=== PATIENT | male | born 1975 | race Caucasian/White ===

== ENCOUNTER 2016-08-14 20:34 | Emergency (ER) | payer BC, OTHER ==
[~2016-08-14] VITALS: Ht 180.3 cm; Wt 113.4 kg
[2016-08-14] MEDS ORDERED: PRD20T PO (21:14)
[2016-08-14] MEDS ORDERED: PROM5SYR PO (21:14)
--- NOTE | 2016-08-14 21:14 | ED Cough/URI ---
General Chief Complaint: Cough/Cold/Flu Symptoms Stated Complaint: COUGH, BODY ACHES, CONGESTION Source: patient Exam Limitations: no limitations History of Present Illness Time seen by provider: 21:11 Initial Comments To ER with a persistent cough for one week. States that he has a cough that is so intense he can't catch his breath occasionally. states that she checked his oxygen saturation at home a few days ago and found to be 89 percent. He denies fevers. He is nonsmoker. He reports intermittent pain across his chest and in his back. States that his mother from pneumonia and is concerned he may have this. Timing/Duration: just prior to arrival Severity/Quality: dry cough Associated Symptoms: chest pain/soreness, cough Allergies and Home Medications Allergies Coded Allergies: Penicillins (Unverified Allergy, Unknown, 08/14/16) Home Medications Amoxicillin 500 Mg Capsule Unknown Dose PO (Reported) Prednisone 20 Mg Tab #6 40 MG PO DAILY Prescribed by: TARA JEFFERY on 08/14/162113 Promethazine HCl/Codeine 5 Ml Syrup #60 7.5 ML PO Q6H PRN PRN COUGH Prescribed by: TARA JEFFERY on 08/14/162113 Constitutional: see HPINo chills, No fever EENTM: see HPI Respiratory: see HPI coughNo short of breath Cardiovascular: no symptoms reported Genitourinary: no symptoms reported Musculoskeletal: no symptoms reported Skin: no symptoms reported Psychiatric/Neurological: No Symptoms Reported Hematologic/Lymphatic: No Symptoms Reported Past Giaqpka-Jvmrdw-Ccrubk Hx Patient Social History Recent Foreign Travel: No Contact w/Someone Who Travel: No Physical Exam Vital Signs Vital Sign - Last 12Hours 08/14/16 21:05 Temp 98.4 Pulse 98 Resp 20 B/P 166/102 Pulse Ox 96 O2 Delivery Room Air Capillary Refill : General Appearance: WD/WN no apparent distress Eyes: Bilateral Eye EOMI (6), Bilateral Eye Normal Inspection, Bilateral Eye PERRL HEENT: PERRL/EOMI normal ENT inspection TMs normal pharynx normal Neck: non-tender full range of motionNo lymphadenopathy (R), No lymphadenopathy (L) Respiratory: chest non-tender lungs clear normal breath sounds no respiratory distress no accessory muscle use Cardiovascular: regular rate, rhythm no murmur Gastrointestinal: normal bowel sounds non tender soft Extremities: normal range of motion non-tender Neurologic/Psychiatric: alert normal mood/affect oriented x 3 Skin: normal color warm/dry Progress/Results/Core Measures Results/Orders Lab Results Laboratory Tests Test 08/14/16 21:32 Range/Units Basophils # (Auto) 0.0 0.0-0.1 10^3/uL Basophils (%) (Auto) 0 0-10 % Eosinophils # (Auto) 0.2 0.0-0.3 10^3/uL Eosinophils (%) (Auto) 3 0-10 % Hematocrit 47 40-54 % Hemoglobin 16.5 13.3-17.7 G/DL Lymphocytes # (Auto) 2.2 1.0-4.0 X 10^3 Lymphocytes (%) (Auto) 32 12-44 % Mean Corpuscular Hemoglobin 30 25-34 PG Mean Corpuscular Hemoglobin Concent 35 32-36 G/DL Mean Corpuscular Volume 86 80-99 FL Mean Platelet Volume 10.4 7.4-10.4 FL Monocytes # (Auto) 0.7 0.0-1.0 X 10^3 Monocytes (%) (Auto) 10 0-12 % Neutrophils # (Auto) 3.9 1.8-7.8 X 10^3 Neutrophils (%) (Auto) 55 42-75 % Platelet Count 252 130-400 10^3/uL Red Blood Count 5.51 4.35-5.85 10^6/uL Red Cell Distribution Width 13.0 10.0-14.5 % Troponin I < 0.30 <0.30 NG/ML White Blood Count 7.0 4.3-11.0 10^3/uL My Orders Orders-TARA JEFFERY APRN Cbc With Automated Diff (08/14/16 21:10) Troponin I (08/14/16 21:10) Chest Pa/Lat (2 View) (08/14/16 21:10) Ekg Tracing (08/14/16 21:10) Promethazine/ Codeine Syrup (Phenergan W (08/14/16 22:30) Vital Signs/I&O Vital Sign - Last 12Hours 08/14/16 08/14/16 21:05 21:05 Temp 98.4 Pulse 98 Resp 20 B/P 166/102 Pulse Ox 96 O2 Delivery Room Air Room Air Diagnostic Imaging Diagonstic Imaging: Xray Plain Films/CT/US/NM/MRI: chest Comments NAME: XIANG MIRELES [facility] REC#: [id number] PT STATUS: REG ER : 1975 PHYSICIAN: TARA JEFFERY APRN ADMIT DATE: 08/14/16/ER Draft Date of Exam:08/14/16 CHEST PA/LAT (2 VIEW) INDICATION: Cough and congestion COMPARISON: None FINDINGS: Frontal and lateral views of the chest demonstrate clear lungs bilaterally. The heart size is normal. There is no pneumothorax. Osseous structures normal. IMPRESSION: Negative chest. Dictated on workstation # [id number] Dict: 08/14/162127 Trans: 08/14/162129 [id number] Interpreted by: DANETTE OBRIEN Electronically signed by: Esperanza Impression Impression: Primary Impression: Bronchitis Disposition: 01 HOME, SELF-CARE Condition: Stable Departure-Patient Inst. Decision time for Depature: 21:13 Referrals: NO,LOCAL PHYSICIAN (PCP) Primary Care Physician Patient Instructions: Acute Bronchitis, Adult (DC) Add. Discharge Instructions: 1. Return to ER for any concerns 2. Follow-up with your doctor next week 3. All discharge instructions reviewed with patient and/or family. Voiced understanding. Scripts Promethazine HCl/Codeine (Prometh-Codein 6.25-10 mg/5 ml)5 Ml Syrup7.5 Ml PO Q6H PRN COUGH #60 ML Prov:TARA JEFFERY APRN 08/14/16 Prednisone 20 Mg Tab40 Mg PO DAILY #6 TAB Prov:TARA JEFFERY APRN 08/14/16 TARA JEFFERY APRN Aug 14, 2016 21:14
[2016-08-14] MEDS ORDERED: AMOX500C2 PO (21:18)
--- NOTE | 2016-08-14 21:30 | Diagnostic Imaging Report ---
INDICATION: Cough and congestion COMPARISON: None FINDINGS: Frontal and lateral views of the chest demonstrate clear lungs bilaterally. The heart size is normal. There is no pneumothorax. Osseous structures normal. IMPRESSION: Negative chest. Dictated by: Dictated on workstation # [id number]
[2016-08-14 21:42] LABS: BASOPHILS % (AUTO) 0 % (0-10); EOSINOPHILS # (AUTO) 0.2 10^3/uL (0.0-0.3); EOSINOPHILS % (AUTO) 3 % (0-10); LYMPHOCYTES # (AUTO) 2.2 X 10^3 (1.0-4.0); LYMPHOCYTES % (AUTO) 32 % (12-44); MEAN CORPUSCULAR HEMOGLOBIN 30 PG (25-34); MEAN CORPUSCULAR HGB CONC 35 G/DL (32-36); MEAN CORPUSCULAR VOLUME 86 FL (80-99); MEAN PLATELET VOLUME 10.4 FL (7.4-10.4); MONOCYTES # (AUTO) 0.7 X 10^3 (0.0-1.0); MONOCYTES % (AUTO) 10 % (0-12); NEUTROPHILS # (AUTO) 3.9 X 10^3 (1.8-7.8); NEUTROPHILS % (AUTO) 55 % (42-75); PLATELET COUNT 252 10^3/uL (130-400); RED BLOOD COUNT 5.51 10^6/uL (4.35-5.85)
[2016-08-14 22:24] VITALS: BP 148/92
[2016-08-14] MEDS ORDERED: PROMETHAZINE/ CODEINE SYRUP 5 ML UDC PO ONE ×2 (22:30)
== END 2016-08-14 22:24 | disposition home or self-care (01) ==
LOC: ER 20:38
DX: J40 Bronchitis, not specified as acute or chronic (principal)
CPT/HCPCS: 36415; 71020; 84484; 85025; 93005

== ENCOUNTER 2021-07-10 21:44 | Emergency (ER) | payer BC ==
[~2021-07-10] VITALS: Ht 170 cm; Wt 79.4 kg
[~2021-07-10 21:44] MED LIST: AMOX500C2 PO; PRD20T PO; PROM5SYR PO
--- NOTE | 2021-07-10 22:32 | ED General ---
General Chief Complaint: COVID19 Suspect/Confirmed Stated Complaint: COVID POSITIVE, WEAK, SOB Source of Information: Patient History of Present Illness Date Seen by Provider: Jul 10, 2021 Time Seen by Provider: 22:01 Initial Comments PT ARRIVES VIA POV FROM HOME STATES HE BEGAN GETTING SICK ON DARRYN 07/02/21 C/O HEADACHE C/O BODY ACHES C/O GENERALIZED WEAKNESS C/O FEELING SHORT OF BREATH C/O LOSS OF TASTE AND SMELL C/O MILD NAUSEA, AND A LITTLE BIT OF DIARRHEA HAS SLIGHT COUGH NO ABDOMINAL PAIN NO FEVER WENT TO [facility] ON Monday07/04/21 AND TESTED + FOR COVID-19--NO RX'S OR TREATMENTS. PT IS NOT VACCINATED FOR FLU OR COVID IS NOT HAVING SYMPTOMS AND SHE TESTED NEGATIVE. SHE HAS NOT BEEN VACCINATED EITHER TOOK 1 TYLENOL YESTERDAY, OTHERWISE HAS NOT TAKEN ANYTHING ELSE FOR SYMPTOMS O2 SATS AT HOME HAVE BEEN IN LOW 90'S--BUT NEVER LESS THAN 90% STATES HE IS "JUST NOT GETTING BETTER" AND IS STARTING TO FEEL A LITTLE WORSE DENIES ANY MEDICAL PROBLEMS OF ANY KIND PT IS NON-SMOKER PCP: NONE--NEVER GOES TO Allergies and Home Medications Allergies Coded Allergies: Penicillins (Unverified Allergy, Unknown, 08/14/16) Patient Home Medication List Home Medication List Reviewed: Yes Amoxicillin (Amoxicillin) 500 Mg Capsule, Unknown Dose PO, (Reported) Entered as Reported by: MARY COOLEY on 08/14/162117 Azithromycin (Zithromax) 500 Mg Tablet, 500 MG PO DAILY Prescribed by: NAINA URRUTIA on 07/10/212351 Cefdinir (Cefdinir) 300 Mg Capsule, 300 MG PO BID Prescribed by: NAINA URRUTIA on 07/10/212351 Dexamethasone (Decadron) 6 Mg Tablet, 6 MG PO DAILY Prescribed by: NAINA URRUTIA on 07/10/212351 Prednisone (Prednisone) 20 Mg Tab, 40 MG PO DAILY Prescribed by: TARA JEFFERY on 08/14/162113 Promethazine HCl/Codeine (Prometh-Codein 6.25-10 mg/5 ml) 5 Ml Syrup, 7.5 ML PO Q6H PRN for COUGH Prescribed by: TARA JEFFERY on 08/14/162113 Review of Systems Review of Systems Constitutional: see HPI, malaise, weakness EENTM: see HPI Respiratory: see HPI, cough, short of breath Cardiovascular: no symptoms reported Gastrointestinal: see HPI, diarrhea, loss of appetite Genitourinary: no symptoms reported; No decreased output Musculoskeletal: see HPI Skin: no symptoms reported Psychiatric/Neurological: See HPI Hematologic/Lymphatic: No Symptoms Reported Immunological/Allergic: no symptoms reported Past Fxafbwu-Iimqkl-Gvjxbu Hx Patient Social History Tobacco Use?: No Use of E-Cig and/or Vaping dev: No Substance use?: No Alcohol Use?: Yes Alcohol Frequency: Once in a while Immunizations Up To Date Tetanus Booster (TDap): Unknown Seasonal Allergies Seasonal Allergies: No Past Medical History Surgeries: No Respiratory: No Cardiac: No Neurological: No Reproductive Disorders: No Genitourinary: No Gastrointestinal: No Musculoskeletal: No Endocrine: No HEENT: No Cancer: No Psychosocial: No Integumentary: No Blood Disorders: No Physical Exam Vital Signs Vital Signs - First Documented 07/10/21 22:05 Temp 36.6 Pulse 108 Resp 20 B/P (MAP) 149/101 (117) O2 Delivery Room Air Capillary Refill : Height, Weight, BMI Height: 5'11" Weight: 250lbs. oz. 113.208449wk; BMI Method:Estimated General Appearance: No Apparent Distress, WD/WN, Other (DOES NOT APPEAR ILL OR TO BE IN ANY DISCOMFORT OR DISTRESS. NO COUGH OR DYSPNEA) HEENT: PERRL/EOMI, Normal ENT Inspection Neck: Normal Inspection Respiratory: Normal Breath Sounds, No Accessory Muscle Use, No Respiratory Distress Cardiovascular: Regular Rate, Rhythm, No Edema, No Murmur, Normal Peripheral Pulses Gastrointestinal: Non Tender, Soft Extremity: Normal Inspection, No Pedal Edema Neurologic/Psychiatric: Alert, Oriented x3, No Motor/Sensory Deficits, Normal Mood/Affect, automotive engineer II-XII Norm as Tested Skin: Normal Color, Warm/Dry Focused Exam Sepsis Stage: Ruled Out Reason for ruling out sepsis: DOES NOT MEET CRITERIA Possible Source: Pulmonary Lactate Level 07/10/21 22:25: Lactic Acid Level 1.56 Time of Focused Exam: 23:15 Respiratory: Normal Breath Sounds, No Accessory Muscle Use, No Respiratory Distress Cardiovascular: Regular Rate, Rhythm, No Murmur, Normal Peripheral Pulses Capillary Refill: Less Than 3 Seconds Skin: normal color, warm/dry Lactic Acid Level Laboratory Tests Test 1/8/22 22:25 Lactic Acid Level 1.56 MMOL/L (0.50-2.00) Within 3hrs of presentation: Admin fluids, Admin ABX, Blood cultures prior to ABX's, Focus exam, Lactate level Progress/Results/Core Measures Suspected Sepsis SIRS Temperature: Pulse: Respiratory Rate: Laboratory Tests 07/10/21 22:25: White Blood Count 5.6 Blood Pressure / Mean: 07/10/21 22:25: Lactic Acid Level 1.56 Laboratory Tests 07/10/21 22:25: Creatinine 1.33H, INR Comment 1.0, Platelet Count 128L, Total Bilirubin 0.4 Results/Orders Lab Results Laboratory Tests Test 07/10/21 22:25 07/11/21 01:21 Range/Units White Blood Count 5.6 4.3-11.0 10^3/uL Red Blood Count 5.67 H 4.30-5.52 10^6/uL Hemoglobin 16.8 13.3-17.7 g/dL Hematocrit 48 40-54 % Mean Corpuscular Volume 84 80-99 fL Mean Corpuscular Hemoglobin 30 25-34 pg Mean Corpuscular Hemoglobin Concent 35 32-36 g/dL Red Cell Distribution Width 11.6 10.0-14.5 % Platelet Count 128 L 130-400 10^3/uL Mean Platelet Volume 11.5 9.0-12.2 fL Immature Granulocyte % (Auto) 1 % Neutrophils (%) (Auto) 75 42-75 % Lymphocytes (%) (Auto) 16 12-44 % Monocytes (%) (Auto) 8 0-12 % Eosinophils (%) (Auto) 0 0-10 % Basophils (%) (Auto) 0 0-10 % Neutrophils # (Auto) 4.2 1.8-7.8 10^3/uL Lymphocytes # (Auto) 0.9 L 1.0-4.0 10^3/uL Monocytes # (Auto) 0.4 0.0-1.0 10^3/uL Eosinophils # (Auto) 0.0 0.0-0.3 10^3/uL Basophils # (Auto) 0.0 0.0-0.1 10^3/uL Immature Granulocyte # (Auto) 0.0 0.0-0.1 10^3/uL Percent Immature Platelet Fraction 6.1 0.0-7.6 % Erythrocyte Sedimentation Rate 32 H 0-15 MM/HR Prothrombin Time 13.4 12.2-14.7 SEC INR Comment 1.0 0.8-1.4 Activated Partial Thromboplast Time 34 24-35 SEC D-Dimer 0.77 H 0.00-0.49 UG/ML Sodium Level 129 L 135-145 MMOL/L Potassium Level 3.5 L 3.6-5.0 MMOL/L Chloride Level 96 L 98-107 MMOL/L Carbon Dioxide Level 13 L 21-32 MMOL/L Anion Gap 20 H 5-14 MMOL/L Blood Urea Nitrogen 11 7-18 MG/DL Creatinine 1.33 H 0.60-1.30 MG/DL Estimat Glomerular Filtration Rate 58 BUN/Creatinine Ratio 8 Glucose Level 276 H 70-105 MG/DL Lactic Acid Level 1.56 0.50-2.00 MMOL/L Calcium Level 8.5 8.5-10.1 MG/DL Corrected Calcium 8.8 8.5-10.1 MG/DL Magnesium Level 1.8 1.6-2.4 MG/DL Total Bilirubin 0.4 0.1-1.0 MG/DL Aspartate Amino Transf (AST/SGOT) 39 H 5-34 U/L Alanine Aminotransferase (ALT/SGPT) 35 0-55 U/L Alkaline Phosphatase 74 40-136 U/L Total Creatine Kinase 37 30-200 U/L Creatine Kinase MB 0.2 <6.6 NG/ML Myoglobin 20.2 10.0-92.0 NG/ML C-Reactive Protein High Sensitivity 6.06 H 0.00-0.50 MG/DL B-Type Natriuretic Peptide < 10.0 <100.0 PG/ML Total Protein 7.0 6.4-8.2 GM/DL Albumin 3.6 3.2-4.5 GM/DL Urine Color YELLOW Urine Clarity CLEAR Urine pH 6.0 5-9 Urine Specific Downs 1.025 H 1.016-1.022 Urine Protein 2+ H NEGATIVE Urine Glucose (UA) 3+ H NEGATIVE Urine Ketones 3+ H NEGATIVE Urine Nitrite NEGATIVE NEGATIVE Urine Bilirubin NEGATIVE NEGATIVE Urine Urobilinogen 0.2 < = 1.0 MG/DL Urine Leukocyte Esterase NEGATIVE NEGATIVE Urine RBC (Auto) TRACE-I H NEGATIVE Urine RBC NONE /HPF Urine WBC NONE /HPF Urine Squamous Epithelial Cells RARE /HPF Urine Crystals NONE /LPF Urine Bacteria NEGATIVE /HPF Urine Casts NONE /LPF Urine Mucus NEGATIVE /LPF Urine Culture Indicated CULTURE PENDING My Orders Orders - NAINA URRUTIA DO Ed Iv/Invasive Line Start (07/10/21 22:01) Ekg Tracing (07/10/21 22:) O2 (07/10/21 22:01) Monitor-Rhythm Ecg Trace Only (07/10/21 22:) Bnp [place] (07/10/21 22:) Cbc With Automated Diff (07/10/21 22:) Comprehensive Metabolic Panel (07/10/21 22:) Blood Culture (07/10/21 22:) Sputum Culture (07/10/21 22:) Urinalysis (07/10/21 22:) Urine Culture (07/10/21 22:) Protime With Inr (07/10/21 22:) Partial Thromboplastin Time (07/10/21 22:) Chest 1 View, Ap/Pa Only (07/10/21 22:01) Ed Iv/Invasive Line Start (07/10/21 22:01) Ed Iv/Invasive Line Start (07/10/21 22:01) Vital Signs Adult Sepsis Patie Q15M (07/10/21 22:01) O2 (07/10/21 22:01) Remove Rings In Anticipation O (07/10/21 22:01) Lactic Acid Analyzer (07/10/21 22:) Creatine Kinase (07/10/21 22:) Creatine Kinase Mb (07/10/21 22:) Hs C Reactive Protein (07/10/21 22:01) Fibrin Degradation Products (07/10/21 22:01) Magnesium (07/10/21 22:01) Erythrocyte Sedimentation Rate (07/10/21 22:01) Myoglobin Serum (07/10/21 22:01) Ed Iv/Invasive Line Start (07/10/21 22:01) Covid-19 External Lab Results (07/10/21 22:01) Ed Iv/Invasive Line Start (07/10/21 22:33) Lactated Ringers (Lr 1000 Ml Iv Solution (07/10/21 22:45) Ceftriaxone 1 Gm Pre-Mix (Rocephin 1 Gm (07/10/21 23:00) Azithromycin Injection (Zithromax Inject (07/10/21 23:00) Ed Iv/Invasive Line Start (07/10/21 23:01) Ns Iv 1000 Ml (Sodium Chloride 0.9%) (07/10/21 23:15) Medications Given in ED Current Medications Medications Dose Ordered Sig/Guy Route Start Time Stop Time Status Last Admin Dose Admin Azithromycin 500 mg/Sodium Chloride 255 ml @ 250 mls/hr ONCE ONCE IV 07/10/21 23:00 07/11/21 00:01 DC 07/10/21 23:52 250 MLS/HR Ceftriaxone Sodium/Dextrose 50 ml @ 100 mls/hr ONCE ONCE IV 07/10/21 23:00 07/10/21 23:29 DC 07/10/21 23:52 100 MLS/HR Lactated Ringer's 1,000 ml @ 0 mls/hr Q0M ONCE IV 07/10/21 22:45 07/10/21 22:46 DC 07/10/21 22:43 999 MLS/HR Vital Signs/I&O 07/10/21 07/10/21 22:05 22:05 Temp 36.6 Pulse 108 Resp 20 B/P (MAP) 149/101 (117) O2 Delivery Room Air Room Air 07/11/21 00:00 Intake Total 1000 ml Balance 1000 ml Capillary Refill : Progress Note : Progress Note PLACED IN ISOLATION ROOM PPE WORN AT ALL TIMES SEPSIS PROTOCOL INITIATED GIVEN IV FLUIDS, ROCEPHIN AND ZITHROMAX, WELL DECADRON NO HYPOXIA NO FEVER NO COUGH NO DYSPNEA AT ANY TIME DURING STAY MONOCLONAL ANTIBODIES ARE CURRENTLY UNAVAILABLE DISCUSSED THE IMPORTANCE OF FOLLOW UP TO ESTABLISH WITH PCP WHEN HE IS BETTER, DUE TO BLOOD PRESSURE AND GLUCOSE LEVELS. STRICT RETURN PRECAUTIONS DISCUSSED ALSO DISCUSSED IMPORTANCE OF CONTINUED QUARANTINE ECG Initial ECG Impression Date: Jul 10, 2021 Initial ECG Impression Time: 22:45 Initial ECG Rate: 99 Initial ECG Rhythm: Normal Sinus Initial ECG Impression: Nonspecific Changes Initial ECG Comparisson: No Previous ECG Available Diagnostic Imaging Comments CXR--PER RADIOLOGIST REPORT AT 2300 FINDINGS: Asymmetric infiltrate primarily in the left upper lobe. Right lung is clear. There is no pneumothorax. Osseous structures are normal. The heart size is age-appropriate. IMPRESSION: Left upper lobe infiltrate compatible with pneumonia. Reviewed: Reviewed by Me Departure Impression Primary Impression: COVID-19 virus infection Additional Impressions: Pneumonia due to COVID-19 virus Dehydration Electrolyte imbalance Hyperglycemia Disposition: 01 HOME, SELF-CARE Condition: Stable Departure-Patient Inst. Decision time for Depature: 02:25 Referrals: NO,LOCAL PHYSICIAN (PCP/Family) Primary Care Physician Patient Instructions: High Blood Sugar, Adult, Dehydration, Adult (DC), COVID- 19 ED, Pneumonia, Adult ED, Preventing the Spread of an Infectious Disease Add. Discharge Instructions: INCREASE YOUR FLUID INTAKE--WATER, BROTH, JELLO, GATORADE TYLENOL 1 GRAM AND MOTRIN 800 MG 4 TIMES A DAY FOR PAIN OR FEVER OVER THE COUNTER MUCINEX DM FOR COUGH QUARANTINE FOR AN ADDITIONAL 5 DAYS FOLLOW UP WITH OF PRUDENCE IN 7-10 DAYS FOR FURTHER CARE RETURN TO ER IF SYMPTOMS WORSEN All discharge instructions reviewed with patient and/or family. Voiced understanding. Scripts Dexamethasone (Decadron) 6 Mg Tablet 6 MG PO DAILY, #10 TAB Prov: NAINA URRUTIA DO 07/10/21 Azithromycin (Zithromax) 500 Mg Tablet 500 MG PO DAILY for 5 Days, #5 TAB Prov: NAINA URRUTIA DO 07/10/21 Cefdinir (Cefdinir) 300 Mg Capsule 300 MG PO BID, #20 CAP Prov: NAINA URRUTIA DO 07/10/21 NAINA URRUTIA DO Jul 10, 2021 22:32
[2021-07-10 22:40] LABS: BASOPHILS % (AUTO) 0 % (0-10); EOSINOPHILS % (AUTO) 0 % (0-10); HEMOGLOBIN 16.8 g/dL (13.3-17.7); MEAN CORPUSCULAR HEMOGLOBIN 30 pg (25-34)
[2021-07-10 22:42] LABS: HEMATOCRIT 48 % (40-54); LYMPHOCYTES # (AUTO) 0.9 10^3/uL (1.0-4.0); LYMPHOCYTES % (AUTO) 16 % (12-44); MEAN CORPUSCULAR HGB CONC 35 g/dL (32-36); MEAN CORPUSCULAR VOLUME 84 fL (80-99); MEAN PLATELET VOLUME 11.5 fL (9.0-12.2); MONOCYTES # (AUTO) 0.4 10^3/uL (0.0-1.0); MONOCYTES % (AUTO) 8 % (0-12); NEUTROPHILS # (AUTO) 4.2 10^3/uL (1.8-7.8); NEUTROPHILS % (AUTO) 75 % (42-75); PLATELET COUNT 128 10^3/uL (130-400); WHITE BLOOD COUNT 5.6 10^3/uL (4.3-11.0)
[2021-07-10] MEDS ORDERED: LACTATED RINGERS 1,000 ML IV ONE (22:45)
--- NOTE | 2021-07-10 22:54 | Diagnostic Imaging Report ---
INDICATION: Shortness of breath, Covid. COMPARISON: None. EXAMINATION: Single view of the chest. FINDINGS: Asymmetric infiltrate primarily in the left upper lobe. Right lung is clear. There is no pneumothorax. Osseous structures are normal. The heart size is age-appropriate. IMPRESSION: Left upper lobe infiltrate compatible with pneumonia. Dictated by: Dictated on workstation # [id number]
[2021-07-10 22:59] LABS: ALBUMIN 3.6 GM/DL (3.2-4.5); POTASSIUM 3.5 MMOL/L (3.6-5.0)
[2021-07-10] MEDS ORDERED: AZITHROMYCIN INJECTION 500 MG in NS (IVPB) 250 ML IV ONE (23:00)
[2021-07-10] MEDS ORDERED: cefTRIAXone 1 GM PRE-MIX 50 ML IV ONE (23:00)
[2021-07-10 23:01] LABS: CALCIUM 8.5 MG/DL (8.5-10.1)
[2021-07-10 23:02] LABS: FIBRIN DEGRADATION PRODUCTS 0.77 UG/ML (0.00-0.49); PROTHROMBIN TIME PATIENT 13.4 SEC (12.2-14.7)
[2021-07-10 23:04] LABS: BILIRUBIN,TOTAL 0.4 MG/DL (0.1-1.0); ERYTHROCYTE SEDIMENTATION RATE 32 MM/HR (0-15)
[2021-07-10 23:05] LABS: CREATININE SERUM 1.33 MG/DL (0.60-1.30)
[2021-07-10 23:08] LABS: MAGNESIUM 1.8 MG/DL (1.6-2.4)
[2021-07-10] MEDS ORDERED: NS IV 1000 ML 1,000 ML IV SCH (23:15)
[2021-07-10 23:16] LABS: CREATINE KINASE MB 0.2 NG/ML (<6.6)
[2021-07-10] MEDS ORDERED: DEXA6TAB6 PO (23:52)
[2021-07-10] MEDS ORDERED: AZIT500T PO (23:52)
[2021-07-10] MEDS ORDERED: CEFD300C3 PO (23:52)
[2021-07-11 01:31] LABS: BILIRUBIN,URINE NEGATIVE (NEGATIVE); CLARITY,URINE CLEAR; COLOR,URINE YELLOW; GLUCOSE, URINE (UA) 3+ (NEGATIVE); KETONES,URINE 3+ (NEGATIVE); LEUKOCYTE ESTERASE ,URINE NEGATIVE (NEGATIVE); NITRITE,URINE NEGATIVE (NEGATIVE); PROTEIN,URINE 2+ (NEGATIVE)
[2021-07-11 01:48] LABS: BACTERIA,URINE NEGATIVE /HPF; SQUAMOUS EPITHELIAL CELL,UR RARE /HPF
[2021-07-11 02:00] VITALS: BP 158/97
== END 2021-07-11 02:00 | disposition home or self-care (01) ==
LOC: EDUNIT# 21:44 → ER 21:50
DX: U07.1 COVID-19 (principal); J12.82 Pneumonia due to coronavirus disease 2019; E86.0 Dehydration; E87.8 Other disorders of electrolyte and fluid balance, not elsewhere classified; R73.9 Hyperglycemia, unspecified
CPT/HCPCS: 36415; 71045; 80053; 81000; 82550; 82553; 83605; 83735; 83874; 83880; 85025; 85379; 85610; 85652; 85730; 86141; 87040; 87088; 93005; 93041